=== PATIENT | female | born 1945 | race Caucasian/White ===

== ENCOUNTER → 2020-02-28 09:11 | Outpatient (BNVA) | payer MEDICARE, SELFPAY | PROVIDERS: PCP Pediatrics; Visit Provider Surgery | DX: Z85.3 Personal history of malignant neoplasm of breast (principal); Z92.3 Personal history of irradiation | CPT/HCPCS: 99213 ==

== ENCOUNTER 2020-04-02 14:07 | Outpatient (REF) | payer MEDICARE, SELFPAY ==
--- NOTE | 2020-04-02 14:10 | MM_ITS ---
EXAMINATION: MM DIAGNOSTIC DIGITAL BREAST TOMOSYNTHESIS, BILATERAL CLINICAL INFORMATION: Right breast cancer 2015. Benign stereotactic biopsy for calcifications anterior lateral to the biopsy cavity 04/14/2019 (calcified fibroadenoma). Probable benign calcifications adjacent to medial side biopsy cavity, likely related to fat necrosis. Due for yearly. COMPARISON: Mammography: 09/16/2019, 04/14/2019, 04/05/2019, 03/30/2018, 03/30/2017 TECHNIQUE: Digital breast tomosynthesis is performed in both the craniocaudal and mediolateral oblique views along with computer-aided detection (CAD). Synthesized 2D images are generated from the tomosynthesis. Additional magnification right CC and magnification right ML views are obtained. FINDINGS: There are scattered areas of fibroglandular density (ACR BI-RADS breast composition Category b). Parenchymal pattern is similar to prior studies. There is no interval mass or architectural abnormality or developing density. The left breast is unremarkable. The right breast has post therapy changes with central 6:00 BioZorb device. There is biopsy clip marker superior lateral to the biopsy cavity consistent with the stereotactic biopsy 2019 (calcified fibroadenoma). The calcifications for follow-up just medial to the BioZorb device are stable to decreased. No suspicious changes. They will be reassessed again at next bilateral annual mammography, due in 12 months. Results are provided to the patient at time of visit by the technologist. MM/MM tomosynthesis diagnostic BI IMPRESSION: 1. Right: Post therapy changes. Probable benign calcifications just medial to BioZorb device. 2. Left: No mammographic evidence of malignancy. ASSESSMENT: BI-RADS 3: Probably Benign RECOMMENDATION: Magnification views right breast at time of annual bilateral mammography, due in one year. This patient's information was entered into a reminder system with a target due date for their next mammogram.
== END 2020-04-02 14:08 | disposition home or self-care (01) ==
LOC: HO.MAMMO 14:07
PROVIDERS: PCP Pediatrics; Visit Provider Internal Medicine Medical Oncology
DX: Z85.3 Personal history of malignant neoplasm of breast (principal); D24.9 Benign neoplasm of unspecified breast; M85.89 Other specified disorders of bone density and structure, multiple sites
CPT/HCPCS: 77062; 77066

== ENCOUNTER → 2020-06-21 10:09 | Outpatient (BNV) | payer MEDICARE, SELFPAY | PROVIDERS: PCP Pediatrics; Visit Provider Internal Medicine Medical Oncology | DX: C50.911 Malignant neoplasm of unspecified site of right female breast (principal) | CPT/HCPCS: 99213; 99214 ==

== ENCOUNTER → 2021-02-28 09:11 | Outpatient (BNVA) | payer MEDICARE, SELFPAY | PROVIDERS: PCP Pediatrics; Visit Provider Surgery | DX: C50.919 Malignant neoplasm of unspecified site of unspecified female breast (principal) | CPT/HCPCS: 99212 ==

== ENCOUNTER 2021-04-01 13:56 | Outpatient (REF) | payer MEDICARE, SELFPAY ==
--- NOTE | ~2021-04-01 | MM_ITS ---
EXAMINATION: MM DIAGNOSTIC DIGITAL BREAST TOMOSYNTHESIS, BILATERAL CLINICAL INFORMATION: Right breast cancer 2015. Benign stereotactic biopsy for calcifications anterior lateral to the biopsy cavity 04/14/2019 (calcified fibroadenoma). Probable benign calcifications adjacent to medial side biopsy cavity, likely related to fat necrosis. Due for yearly. COMPARISON: Mammography: 04/02/2020, 09/16/2019, 04/14/2019, 04/05/2019, 03/30/2018 TECHNIQUE: Digital breast tomosynthesis is performed in both the craniocaudal and mediolateral oblique views along with computer-aided detection (CAD). Synthesized 2D images are generated from the tomosynthesis. FINDINGS: There are scattered areas of fibroglandular density (ACR BI-RADS breast composition Category b). There are post therapy changes on the right with BioZorb device and stable scarring. There is a biopsy clip marker anterior lateral to the lumpectomy site. No recurrent calcifications. Calcifications just medial to the lumpectomy site are decreased and appear consistent with fat necrosis on prior magnification views 2017. There are no suspicious changes. Neither breast shows interval mass or architectural abnormality. No developing density. Results are provided to the patient at time of visit by the technologist. MM/MM tomosynthesis diagnostic BI IMPRESSION: No mammographic evidence of malignancy. Benign post therapy changes on right. No suspicious calcifications. ASSESSMENT: BI-RADS 2: Benign RECOMMENDATION: Routine annual mammography screening. This patient's information was entered into a reminder system with a target due date for their next mammogram.
== END 2021-04-01 13:57 | disposition home or self-care (01) ==
LOC: HO.MAMMO 13:56
PROVIDERS: Absent Provider Internal Medicine Medical Oncology; Visit Provider Surgery
DX: R92.1 Mammographic calcification found on diagnostic imaging of breast (principal); Z85.3 Personal history of malignant neoplasm of breast
CPT/HCPCS: 77062; 77066

== ENCOUNTER 2022-04-02 09:22 | Outpatient (REF) | payer MEDICARE, SELFPAY ==
--- NOTE | ~2022-04-02 | MM_ITS ---
EXAMINATION: MM SCREENING DIGITAL BREAST TOMOSYNTHESIS, BILATERAL CLINICAL INFORMATION: Right breast cancer, 2015. Benign stereotactic biopsy for calcifications anterior lateral to the biopsy cavity 04/14/2019 (calcified fibroadenoma). Due for yearly. COMPARISON: Mammography: 04/01/2021, 04/02/2020, 09/16/2019, 04/05/2019 TECHNIQUE: Digital breast tomosynthesis is performed in both the craniocaudal and mediolateral oblique views along with computer-aided detection (CAD). Synthesized 2D images are generated from the tomosynthesis. FINDINGS: There are scattered areas of fibroglandular density (ACR BI-RADS breast composition Category b). Parenchymal pattern is similar to prior studies and there is no interval mass, developing density, architectural abnormality, or abnormal calcifications. Left breast is similar to prior studies. There are post therapy changes again seen on right with biopsy cavity BioZorb device posterior central lower breast, axillary surgical clips, and biopsy clip marker central upper outer breast. Incidental dystrophic calcifications at the lumpectomy site again present. Other benign calcifications previously for follow-up medial to the biopsy cavity are decreased. No significant changes from prior studies. MM/MM tomosynthesis screening BI IMPRESSION: -No mammographic evidence of malignancy. -Post therapy changes right breast. ASSESSMENT: BI-RADS 2: Benign RECOMMENDATION: Routine annual mammography screening. This patient's information was entered into a reminder system with a target due date for their next mammogram.
== END 2022-04-02 09:23 | disposition home or self-care (01) ==
LOC: HO.MAMMO 09:22
PROVIDERS: PCP Internal Medicine; Visit Provider Surgery
DX: Z12.31 Encounter for screening mammogram for malignant neoplasm of breast (principal)
CPT/HCPCS: 77063; 77067

== ENCOUNTER → 2022-04-10 09:07 | Outpatient (BNVA) | payer MEDICARE, SELFPAY | PROVIDERS: PCP Internal Medicine; Visit Provider Surgery | DX: C50.911 Malignant neoplasm of unspecified site of right female breast (principal) | CPT/HCPCS: 99212 ==

== ENCOUNTER 2023-04-17 07:19 | Outpatient (REF) | payer MEDICARE, SELFPAY ==
--- NOTE | ~2023-04-17 | MM_ITS ---
EXAMINATION: MM SCREENING DIGITAL BREAST TOMOSYNTHESIS, BILATERAL CLINICAL INFORMATION: Screening. Asymptomatic. Patient has a history of prior treated right breast cancer. COMPARISON: Mammography: This study is compared with prior exams dating back to 2018. TECHNIQUE: Digital breast tomosynthesis is performed in both the craniocaudal and mediolateral oblique views along with computer-aided detection (CAD). Synthesized 2D images are generated from the tomosynthesis. FINDINGS: There are scattered areas of fibroglandular density (ACR BI-RADS breast composition Category b). There is a tissue marker in the upper outer quadrant of the right breast from prior benign stereotactic biopsy. This is not in the surgical bed of the prior treated breast cancer. There are surgical clips present and minor architectural change in the central portion of the right breast from prior breast cancer surgery. There are no mammographic signs of malignancy in the right breast at the current time. In the left breast, there are no significant masses, abnormal calcifications, or other abnormalities. MM/MM tomosynthesis screening BI IMPRESSION: No mammographic evidence of malignancy. ASSESSMENT: BI-RADS BI-RADS 2 - Benign Findings RECOMMENDATION: Routine annual mammography screening. 1 year F/U This examination should not preclude the clinical evaluation of a suspicious palpable abnormality. This patient's information was entered into a reminder system with a target due date for their next mammogram.
== END 2023-04-17 07:20 | disposition home or self-care (01) ==
LOC: HO.MAMMO 07:19
PROVIDERS: PCP Internal Medicine; Visit Provider Internal Medicine
DX: Z12.31 Encounter for screening mammogram for malignant neoplasm of breast (principal)
CPT/HCPCS: 77063; 77067

== ENCOUNTER → 2023-04-17 07:30 | Outpatient (BNV) | payer MEDICARE, SELFPAY | PROVIDERS: PCP Internal Medicine; Visit Provider Radiology Diagnostic Radiology | DX: Z12.31 Encounter for screening mammogram for malignant neoplasm of breast (principal) | CPT/HCPCS: 77063; 77067 ==

== ENCOUNTER 2023-04-24 08:39 | Outpatient (AMB) | payer MEDICARE, SELFPAY ==
--- NOTE | 2023-04-24 08:46 | MHC.OFFVIS ---
Intake Vital Signs 04/24/23 08:55 Height 5 ft Weight 137 lb 6 oz BMI 26.8 BP 130/75 Blood Pressure Location Lt brachial Position Sitting Pulse 78 Intake Visit Reasons: Yearly Breast Exam Intake Note: Pt is seen in office for yearly breast exam. 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 Vilchis returning for a routine yearly breast examination following previous right breast surgery and a previous stereotactic guided biopsy in 2020.? She initially presented in 2014 with a palpable mass in the 6 o'clock position of the right breast.? A right breast lumpectomy performed by Dr. Vilchis revealed an infiltrating lobular carcinoma, grade 2, ER/[place] positive, HER2 Vianey negative, measuring? 2.0 X 0.6 X 0.6 cm.? Margins were initially positive and re-excision was performed, showing clear margins.? Patient had a? BioSorb placed in the excision cavity.? Excision of sentinel nodes were negative for metastatic disease.? Oncotype score was low risk and patient was treated with letrozole with no side effects she underwent radiation therapy to the right breast.? She return in April 2019 with a new suspicious lesion in the right breast and subsequently underwent stereotactic guided core biopsy.? This revealed benign pathology.? A six-month follow-up mammogram in September of 2019 revealed no suspicious findings.? Her most recent mammogram dated 04/17/2023 revealed no mammographic evidence of malignancy (BI-RADS 2). Routine annual mammographic screening is recommended. [facility] Medical History (Updated 04/24/23 @ 09:14 by Hossein Fox MD) Rotator cuff arthropathy of right shoulder (~06/11/22) Lobular carcinoma of breast (2014) Asthma Surgical History History of repair of left rotator cuff (11/2021) History of partial mastectomy of right breast (04/2015) History of tonsillectomy Family History Father No problems noted. Mother CVS disease Sister CVS disease Social History Household Members: Spouse Housing: House Are you a primary acute care certified nursing assistant to a significant other at home: No Do you presently have visiting nurse or other home services: No Patient Tobacco Use Status: Never used Tobacco service: No Current occupational status: unemployed Review of Systems Const Denies chills, Denies fever(s), Denies headache(s) and Denies poor appetite ENT Denies dizziness and Denies headache(s) Card Denies chest pain, Denies rapid heart rate, Denies palpitations and Denies slow heart rate Resp Denies chest congestion, Denies cough, Denies pain on inspiration and Denies wheezing GI Denies abdominal pain, Denies bloating, Denies change in stool character, Denies constipation, Denies diarrhea, Denies nausea, Denies vomiting and Reports hematemesis Musc Denies back pain, Denies arthralgias, Denies joint swelling and Denies numbness Skin/Breast Denies change in pigmentation, Denies erythema and Denies rash Neuro Denies dizziness, Denies headache(s) and Denies numbness Psych Denies anxiety and Denies depression Endo Denies palpitations Jayme/Lymph Denies easy bleeding, Denies easy bruising and Denies lymphadenopathy Aller/Immun Denies wheezing Physical Exam Vital Signs: Last Vital Signs Pulse 78 04/24/23 08:55 BP 130/75 04/24/23 08:55 BMI result Body Mass Index 26.8 Const General: well developed Nutritional Appearance: well nourished Orientation/consciousness: patient oriented x3 Limitations: no limitations Eyes Sclerae: sclerae normal EOM: EOMs intact bilaterally Neck Neck: Yes normal visual inspection Chest Other: Right breast: No skin changes, no nipple retraction, no nipple discharge, no tenderness, no palpable mass, no enlarged lymph nodes. Left breast: No skin changes, no nipple retraction, no nipple discharge, no tenderness, no palpable mass, no enlarged lymph nodes. Resp Effort & Inspection: normal respiratory effort, no cough and no respiratory distress Cardio Jugular venous distension: no JVD Skin General skin exam: dry skin Rashes: no rashes Neuro General: patient oriented x3 Extrem Other: Right forearm in a cast General: Yes no clubbing, cyanosis or edema Right upper extremity: normal capillary refill Left upper extremity: full ROM Assessment & Plan Assessment & Plan (1) Lobular carcinoma of breast: Onset Date: 2014 Comment: right breast Code(s): C50.919 - Malignant neoplasm of unspecified site of unspecified female breast Qualifiers: Laterality: right Qualified Code(s): C50.911 - Malignant neoplasm of unspecified site of right female breast Plan: 77-year-old female patient returns approximately 8 years following lumpectomy and sentinel node biopsy for a invasive lobular carcinoma of the right breast, status post radiation therapy, and letrozole. She developed a new suspicious finding in the right breast 3 years ago and underwent a stereotactic guided biopsy which was benign. Since this time she has done well and denies any ongoing breast symptoms. Her most recent mammogram dated 04/17/2023 revealed no mammographic evidence of malignancy (BI-RADS 2). Annual screening mammography is recommended. Examination today revealed no suspicious findings in either breast. I recommended follow-up examination 1 year. She may return sooner for any new concerns. Coding Level of Care Code Est Pt Level 3 (55304) Diagnoses Lobular carcinoma of right breast C50.911 Laterality: right
[2023-04-24 08:55] VITALS: BP 130/75; PULSE 78; BMI 26.8
== END 2023-04-24 09:11 | disposition home or self-care (01) ==
PROVIDERS: PCP Internal Medicine; Visit Provider Surgery
DX: C50.911 Malignant neoplasm of unspecified site of right female breast (principal)
CPT/HCPCS: 99213

== ENCOUNTER → 2023-04-24 08:39 | Outpatient (BNVA) | payer MEDICARE, SELFPAY | PROVIDERS: PCP Internal Medicine; Visit Provider Surgery | DX: Z85.3 Personal history of malignant neoplasm of breast (principal) | CPT/HCPCS: 99212 ==

== ENCOUNTER 2024-04-22 08:33 | Outpatient (AMB) | payer MEDICARE, SELFPAY ==
--- NOTE | 2024-04-22 08:39 | A.OFFVIS_ITS ---
Vital Signs 04/22/24 08:46 Height 5 ft 2 in Weight 143 lb 4 oz BMI 26.2 BP 136/72 Blood Pressure Location Lt brachial Position Sitting Pulse 84 Intake Visit Reasons: Yearly Breast Exam Intake Note: Pt is seen in office for yearly breast exam. 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 Vilchis returning for a routine yearly breast examination following previous right breast surgery and a previous stereotactic guided biopsy in 2020.? She initially presented in 2014 with a palpable mass in the 6 o'clock position of the right breast.? A right breast lumpectomy performed by Dr. Vilchis revealed an infiltrating lobular carcinoma, grade 2, ER/[place] positive, HER2 Vianey negative, measuring? 2.0 X 0.6 X 0.6 cm.? Margins were initially positive and re-excision was performed, showing clear margins.? Patient had a? BioSorb placed in the excision cavity.? Excision of sentinel nodes were negative for metastatic disease.? Oncotype score was low risk and patient was treated with letrozole with no side effects she underwent radiation therapy to the right breast.? She return in April 2019 with a new suspicious lesion in the right breast and subsequently underwent stereotactic guided core biopsy.? This revealed benign pathology.? A six-month follow-up mammogram in September of 2019 revealed no suspicious findings.? Her most recent mammogram dated 04/17/2023 revealed no mammographic evidence of malignancy (BI-RADS 2). Routine annual mammographic screening is scheduled for 04/26/2024. [facility] Medical History Rotator cuff arthropathy of right shoulder (~06/11/22) Lobular carcinoma of breast (2014) Asthma Surgical History (Updated 04/22/24 @ 08:46 by CAROLYNN Beltrán) History of repair of right rotator cuff (2023) History of repair of left rotator cuff (11/2021) History of partial mastectomy of right breast (04/2015) History of tonsillectomy Family History Father No problems noted. Mother CVS disease Sister CVS disease Social History Household Members: Spouse Housing: House Are you a primary cardiac care unit nurse to a significant other at home: No Do you presently have visiting nurse or other home services: No Patient Tobacco Use Status: Never used Tobacco service: No Current occupational status: unemployed Review of Systems Const Denies chills, Denies fever(s), Denies headache(s) and Denies poor appetite ENT Denies dizziness and Denies headache(s) Card Denies chest pain, Denies rapid heart rate, Denies palpitations and Denies slow heart rate Resp Denies chest congestion, Denies cough, Denies pain on inspiration and Denies wheezing GI Denies abdominal pain, Denies bloating, Denies change in stool character, Denies constipation, Denies diarrhea, Denies nausea, Denies vomiting and Reports hematemesis Musc Denies back pain, Denies arthralgias, Denies joint swelling and Denies numbness Skin/Breast Denies change in pigmentation, Denies erythema and Denies rash Neuro Denies dizziness, Denies headache(s) and Denies numbness Psych Denies anxiety and Denies depression Endo Denies palpitations Jayme/Lymph Denies easy bleeding, Denies easy bruising and Denies lymphadenopathy Aller/Immun Denies wheezing Physical Exam Const General: well developed Nutritional Appearance: well nourished Orientation/consciousness: patient oriented x3 Limitations: no limitations Eyes Sclerae: sclerae normal EOM: EOMs intact bilaterally Neck Neck: Yes normal visual inspection Chest Other: Right breast: No skin changes, no nipple retraction, no nipple discharge, no tenderness, no palpable mass, no enlarged lymph nodes. Left breast: No skin changes, no nipple retraction, no nipple discharge, no tenderness, no palpable mass, no enlarged lymph nodes. Resp Effort & Inspection: normal respiratory effort, no cough and no respiratory distress Cardio Jugular venous distension: no JVD Skin General skin exam: dry skin Rashes: no rashes Neuro Other: Mobility Assessment: 5 1. 3 meter assessment time (seconds) 2. Gait observations: Normal balance and gait General: patient oriented x3 Extrem Other: Right forearm in a cast General: Yes no clubbing, cyanosis or edema Right upper extremity: normal capillary refill Left upper extremity: full ROM Assessment & Plan Assessment & Plan (1) Lobular carcinoma of breast: Onset Date: 2014 Comment: right breast Code(s): C50.919 - Malignant neoplasm of unspecified site of unspecified female breast Category: Medical Qualifiers: Laterality: right Qualified Code(s): C50.911 - Malignant neoplasm of unspecified site of right female breast Plan: 77-year-old female patient returns approximately 9 years following lumpectomy and sentinel node biopsy for a invasive lobular carcinoma of the right breast, status post radiation therapy, and letrozole. She developed a new suspicious finding in the right breast 4 years ago and underwent a stereotactic guided biopsy which was benign. Since this time she has done well and denies any ongoing breast symptoms. Her most recent mammogram dated 04/17/2023 revealed no mammographic evidence of malignancy (BI-RADS 2). Annual screening mammography is scheduled for 04/26/2024. Examination today revealed no suspicious findings in either breast. I recommended follow-up examination 1 year. She may return sooner for any new concerns. Coding Level of Care Code Est Pt Level 3 (36559) Complex EM visit Add On G2211 Diagnoses Lobular carcinoma of right breast C50.911 Laterality: right
[2024-04-22 08:46] VITALS: BP 136/72; PULSE 84; BMI 26.2
== END 2024-04-22 08:59 | disposition home or self-care (01) ==
PROVIDERS: PCP Internal Medicine; Visit Provider Surgery
DX: C50.911 Malignant neoplasm of unspecified site of right female breast (principal)
CPT/HCPCS: 99213; G2211

== ENCOUNTER → 2024-04-22 08:33 | Outpatient (BNVA) | payer MEDICARE, SELFPAY | PROVIDERS: PCP Internal Medicine; Visit Provider Surgery | DX: C50.911 Malignant neoplasm of unspecified site of right female breast (principal) | CPT/HCPCS: 99212 ==

== ENCOUNTER 2024-04-26 07:06 | Outpatient (REF) | payer MEDICARE, SELFPAY | END 2024-04-26 07:07 | disposition home or self-care (01) | LOC: HO.MAMMO 07:06 | PROVIDERS: PCP Internal Medicine; Visit Provider Internal Medicine | DX: Z12.31 Encounter for screening mammogram for malignant neoplasm of breast (principal) | CPT/HCPCS: 77063; 77067 ==

== ENCOUNTER → 2024-04-26 07:30 | Outpatient (BNV) | payer MEDICARE, SELFPAY | PROVIDERS: PCP Internal Medicine; Visit Provider Internal Medicine | DX: Z12.31 Encounter for screening mammogram for malignant neoplasm of breast (principal) | CPT/HCPCS: 77063; 77067 ==

== ENCOUNTER 2025-04-25 08:46 | Outpatient (AMB) | payer MEDICARE, SELFPAY ==
[2025-04-25 08:54] VITALS: BP 122/65; PULSE 87; BMI 24.4
--- NOTE | 2025-04-25 08:54 | MHC.OFFVIS ---
Vital Signs 04/25/25 08:54 Height 5 ft 4 in Weight 142 lb BMI 24.4 BP 122/65 Blood Pressure Location Rt brachial Position Sitting Pulse 87 Intake Visit Reasons: Yearly Breast Exam Intake Note: Patient is seen in office for yearly breast exam. Pt c/o: no concerns. Denies breast lumps, nipple discharge. Reports no changes in medical hx since last office visit. 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 Vilchis, returning for routine breast examination following breast cancer surgery. She presented in 2014 with a palpable mass in the 6 o'clock position of the right breast she underwent right breast lumpectomy which revealed an infiltrating lobular carcinoma, grade 2, ER/[place] positive, HER2 Vianey negative measuring 2.0 x 0.6 x 0.6 cm. Margins were initially positive and re-excision was performed showing clear margins. Patient had a BioZorb placed after the excision. Excision of sentinel nodes were negative for metastatic disease. Oncotype score was negative the patient was treated with letrozole with no side effects. She also underwent radiation therapy to the right breast. She returned in April 2019 with a new suspicious lesion in the right breast and subsequently underwent a stereotactic guided core biopsy. The pathology was benign for this biopsy. Her most recent mammogram dated 04/26/2024 revealed no mammographic evidence of malignancy (BI-RADS 2). She is scheduled for her annual mammogram on 05/01/2025. She feels well and denies any ongoing breast symptoms. [facility] Medical History Rotator cuff arthropathy of right shoulder (~06/11/22) Lobular carcinoma of breast (2014) Asthma Surgical History History of repair of right rotator cuff (2023) History of repair of left rotator cuff (11/2021) History of partial mastectomy of right breast (04/2015) History of tonsillectomy Family History Father No problems noted. Mother CVS disease Sister CVS disease Social History Household Members: Spouse Housing: House Are you a primary long term care pharmacist to a significant other at home: No Do you presently have visiting nurse or other home services: No Patient Tobacco Use Status: Never used Tobacco service: No Current occupational status: unemployed Review of Systems Const All systems reviewed & are unremarkable except as noted in HPI and below Physical Exam Const General: well developed Nutritional Appearance: well nourished Orientation/consciousness: patient oriented x3 Limitations: no limitations Eyes Sclerae: sclerae normal EOM: EOMs intact bilaterally Neck Neck: Yes normal visual inspection Chest Other: Right breast: No skin changes, no nipple retraction, no nipple discharge, no tenderness, no palpable mass, no enlarged lymph nodes. Left breast: No skin changes, no nipple retraction, no nipple discharge, no tenderness, no palpable mass, no enlarged lymph nodes. Resp Effort & Inspection: normal respiratory effort, no cough and no respiratory distress Cardio Jugular venous distension: no JVD Skin General skin exam: dry skin Rashes: no rashes Neuro Other: Mobility Assessment: 5 1. 3 meter assessment time (seconds) 2. Gait observations: Normal balance and gait General: patient oriented x3 Extrem Other: Right forearm in a cast General: Yes no clubbing, cyanosis or edema Right upper extremity: normal capillary refill Left upper extremity: full ROM Assessment & Plan Assessment & Plan (1) Lobular carcinoma of breast: Onset Date: 2014 Comment: right breast Code(s): C50.919 - Malignant neoplasm of unspecified site of unspecified female breast Category: Medical Qualifiers: Laterality: right Qualified Code(s): C50.911 - Malignant neoplasm of unspecified site of right female breast Plan: 79-year-old female patient returns for yearly breast examination following right breast lumpectomy and sentinel node biopsy (2014) for a invasive lobular carcinoma of the right breast, status post radiation therapy, and letrozole. She developed a new suspicious finding in the right breast 4 years ago and underwent a stereotactic guided biopsy which was benign. Since this time she has done well and denies any ongoing breast symptoms. Her most recent mammogram dated 04/26/2024 revealed no mammographic evidence of malignancy (BI-RADS 2). Annual screening mammography is scheduled for 05/01/2025. Examination today revealed no suspicious findings in either breast. I recommended follow-up examination 1 year, sooner PRN. Coding Level of Care Code Est Pt Level 3 (63753) Add On Problem Visit Only Diagnoses Lobular carcinoma of right breast C50.911 Laterality: right
== END 2025-04-25 09:07 | disposition home or self-care (01) ==
LOC: HO.HGS 08:47
PROVIDERS: PCP Internal Medicine; Visit Provider Surgery
DX: C50.911 Malignant neoplasm of unspecified site of right female breast (principal)
CPT/HCPCS: 99213; G2211

== ENCOUNTER → 2025-04-25 08:46 | Outpatient (BNVA) | payer MEDICARE, SELFPAY | PROVIDERS: PCP Internal Medicine; Visit Provider Surgery | DX: Z08 Encounter for follow-up examination after completed treatment for malignant neoplasm (principal); Z12.31 Encounter for screening mammogram for malignant neoplasm of breast; Z85.3 Personal history of malignant neoplasm of breast | CPT/HCPCS: 99212 ==

== ENCOUNTER 2025-05-01 08:36 | Outpatient (REF) | payer MEDICARE, SELFPAY ==
--- NOTE | ~2025-05-01 | MM_ITS ---
EXAMINATION: MM SCREENING DIGITAL BREAST TOMOSYNTHESIS, BILATERAL CLINICAL INFORMATION: Screening. Asymptomatic. COMPARISON: Mammography: Comparison is made with available priors TECHNIQUE: Digital breast mammography with tomosynthesis is performed in both the craniocaudal and mediolateral oblique views along with computer-aided detection (CAD). FINDINGS: The breasts are heterogeneously dense, which may obscure small masses. Right lumpectomy changes are stable. Right marker clip. There are no significant masses, abnormal calcifications, or other abnormalities. MM/MM tomosynthesis screening BI IMPRESSION: No mammographic evidence of malignancy. ASSESSMENT: BI-RADS Category 2: Benign RECOMMENDATION: Routine annual mammography screening. 1 year F/U This examination should not preclude the clinical evaluation of a suspicious palpable abnormality. This patient's information was entered into a reminder system with a target due date for their next mammogram. Electronically signed by: Yola Ann DO 05/01/2025 09:40 AM [facility] [place]
== END 2025-05-01 08:37 ==
LOC: HO.MAMMO 08:36
PROVIDERS: PCP Internal Medicine Rheumatology; Visit Provider Internal Medicine Rheumatology
DX: Z12.31 Encounter for screening mammogram for malignant neoplasm of breast (principal)
CPT/HCPCS: 77063; 77067

== ENCOUNTER → 2025-05-01 09:00 | Outpatient (BNV) | payer MEDICARE, SELFPAY | PROVIDERS: PCP Internal Medicine Rheumatology; Visit Provider Internal Medicine | DX: Z12.31 Encounter for screening mammogram for malignant neoplasm of breast (principal) | CPT/HCPCS: 77063; 77067 ==